=== PATIENT | male | born 1955 | race Caucasian/White ===

== ENCOUNTER 2018-06-22 06:09 | Emergency (ER) | payer OTHER ==
[~2018-06-22] VITALS: Ht 182.9 cm; Wt 127.0 kg
--- OUTSIDE RECORDS SUMMARY | ~2018-06-22 | XMS | Clinical Summary ---
Demographics + + + | Address | [address] | | | [place] [address] | + + + | Home Phone | | + + + | Preferred Language | Unknown | + + + | Marital Status | | + + + | Rastafari Affiliation | Unknown | + + + [...] | + + +---------+ + | Amber Baker | ECON | Unknown | | + + +---------+ + Care Team Providers + +------+ + | Care Slot Machine Department Floorperson Name | Role | Phone | + +------+ + | Gianni Gonzalez MD | PP | | + +------+ + Source Comments FRANKIE is fully live on both [facility] Ambulatory and [facility] InPatient.[facility] Allergies No Known Allergies Current Medications + + +-------+---------+------+------+-------+ | Prescription | Sig. | Disp. | Refills | Star | End | Statu | | | | | | t | Date | s | | | | | | Date | | | + + +-------+---------+------+------+-------+ | INSULIN ZINC HUMAN | Inject under the | | | | | Activ | | RECOMBINANT | skin (SUBC). 85 | | | | | e | | (HUMULIN L SUBQ) | units every morning | | | | | | | | and 60 units every | | | | | | | | evening | | | | | | + + +-------+---------+------+------+-------+ | | Take 1 tablet by | | | | | Activ | | valsartan-hydrochlor | mouth once daily. | | | | | e | | othiazide 160-12.5 | | | | | | | | mg oral tablet | | | | | | | + + +-------+---------+------+------+-------+ | metoprolol | Take 50 mg by mouth | | | | | Activ | | succinate 50 mg oral | once daily. | | | | | e | | tablet extended | | | | | | | | release 24 hr | | | | | | | + + +-------+---------+------+------+-------+ | metFORMIN 500 mg | Take 500 mg by mouth | | | | | Activ | | oral tablet | once daily. | | | | | e | + + +-------+---------+------+------+-------+ | amLODIPine 5 mg | Take 5 mg by mouth | | | | | Activ | | oral tablet | once daily. | | | | | e | + + +-------+---------+------+------+-------+ | atorvastatin 40 mg | Take 40 mg by mouth | | | | | Activ | | oral tablet | once daily. | | | | | e | + + +-------+---------+------+------+-------+ | | Take by mouth once | | | | | Activ | | MV/K/OMG3/D3/MAG/C/G | daily. | | | | | e | | .TEA/CHROM (DIABETES | | | | | | | | HEALTH PACK ORAL) | | | | | | | + + +-------+---------+------+------+-------+ Active Problems Not on file Family History [...] + +---------+ + | Yes | 1 | 0.6 | | | | Standard | | | | | drinks or | | | | | | | | | | equivalen | | | | | t | | | + + +---------+ + + + + | Sex Assigned at | Date Recorded | | | | + + + | Not on file | | + + + Plan of Treatment + + + + + | Health Maintenance | Due Date | Last Done | Comments | + + + + + | Influenza (Flu) | | | | | vaccination (#1) | 8 | | | + + + + + Results Not on filefrom Last 3 Months Insurance + +--------+ +------+ + + | Payer | Benefi | Subscriber | Type | Phone | Address | | | t Plan | ID | | | | | | / | | | | | | | Group | | | | | + +--------+ +------+ + + | [facility] | PHP | [phone] | PPO | [phone] [address] | | | [place] | | | [address] | [place] [address] | | | [place] | | | | | | | [place] | | | | | + +--------+ +------+ + + + +--------+ +--------+ + + | Guarantor Name | Accoun | Relation to | Date | Phone | Billing Address | | | t Type | Patient | of | | | | | | | | | | + +--------+ +--------+ + + | ABBIE BAKER | Person | Self [birth year] | Home: | [address] | | | al/Fam | | 1955 | [phone] | [place] [address] | | | adam | | | 1998 | | + +--------+ +--------+ + +"
--- OUTSIDE RECORDS SUMMARY | ~2018-06-22 | XMS | Clinical Summary ---
Demographics + + + | Address | [address] | | | [place] [address] | + + + | Home Phone | | + + + | Preferred Language | Unknown | + + + | Marital Status | | + + + | Confucianism Affiliation | Unknown | + + + | Race | Unknown | + + + | Ethnic Group | Unknown | + + + Author + + + | Author | [facility] | | | and [place] | + + + | Organization | [facility] | | | and [place] [...] Team Providers + +------+ + | Care Paving Block Cutter Name | Role | Phone | + +------+ + | Gianni Gonzalez | PP | | | MD | | | + +------+ + Allergies No Known Allergies Current Medications + + +-------+---------+------+------+-------+ | Prescription | Sig. | Disp. | Refills | Star | End | Statu | | | | | | t | Date | s | | | | | | Date | | | + + +-------+---------+------+------+-------+ | metFORMIN | Take 1,000 mg by | | | | | Activ | | (GLUMETZA) [...] | | | | Activ | | tartrate (LOPRESSOR) | 2 times daily. | | | | | e | | 50 mg tablet | | | | | | | + + +-------+---------+------+------+-------+ | insulin NPH | Inject 145 Units | | | | | Activ | | (HUMULIN N, NOVOLIN | under the skin 2 | | | | | e | | N) 100 units/mL | times daily (before | | | | | | | injection | meals). | | | | | | + + +-------+---------+------+------+-------+ | Misc Natural | Take 1 packet by | | | | | Activ | | Products (DIABETES | mouth Daily. | | | | | e | | SUPPORT) TABS | | | | | | | + + +-------+---------+------+------+-------+ | UNABLE TO FIND | Med Name: Resmed | | | | | Activ | | | AirSense 10 autoset | | | | | e | | | CPAP: 8-20 cm | | | | | | + + +-------+---------+------+------+-------+ Active Problems + + + | Problem | Noted Date | + + + | Type 2 diabetes mellitus (HCC) | | + + + | Obesity [...] on file | | + + + Last Filed Vital Signs + [...] | Body Mass Index | 41.74 | 12/21/2015934 PDT | + + + + Plan [...] | | | | | (#1) | 8 | | | + + + + + Results Not on filefrom Last 3 Months Insurance + +--------+ +------+ +---------+ | Payer | Benefi | Subscriber | Type | Phone | Address | | | t Plan | ID | | | | | | / | | | | | | | Group | | | | | + +--------+ +------+ +---------+ | [facility] | PHP | [id number] | PPO | [phone] | | PLAN | [place] | | | [phone] | | | | [place] | | | | | | | [place] | | | | | + +--------+ +------+ +---------+ + +--------+ +--------+ + + | Guarantor Name | Accoun | Relation to | Date | Phone | Billing Address | | | t Type | Patient | of | | | | | | | | | | + +--------+ +--------+ + + | ABBIE CAO | Person | Self | [birth year] | Home: | [address] | | | [place] | | 1955 | [phone] | [place] [address] | | | adam | | | 1998 | | + +--------+ +--------+ + +
--- OUTSIDE RECORDS SUMMARY | ~2018-06-22 | XMS | Clinical Summary ---
Demographics + + + | Address | [address] | | | [place] [address] | + + + | Home Phone | | + + + | Preferred Language | Unknown | + + + | Marital Status | | + + + | Faith Affiliation | Unknown | + + + | Race | Unknown | + + + | Ethnic Group | Unknown | + + + Author + + + | Author | [facility] | | | and [place] | + + + | Organization | [facility] | | | and [place] | [...] Team Providers + +------+ + | Care Appliance Sales Associate Name | Role | Phone | + [...] | | + +--------+ +------+ +---------+ | [facility] | PHP | [id number] | PPO | [phone] | | PLAN | [place] | [...] | Self | [birth year] | Home: | [address] | | | [place] | | 1955 | [phone] | [place] [address] | | | adam | | | 1998 | | + +--------+ +--------+ + +
--- OUTSIDE RECORDS SUMMARY | ~2018-06-22 | XMS | Clinical Summary ---
Demographics + + + | Address | [address] | | | [place] [address] | + + + | Home Phone | | + + + | Preferred Language | Unknown | + + + | Marital Status | | + + + | Worship Affiliation | Unknown | + + + [...] Team Providers + +------+ + | Care Technical Internship Name | Role | Phone | + +------+ + | Gianni Gonzalez MD | PP | | + +------+ + Source Comments FRANKIE is fully live on both [facility] Ambulatory and [facility] InPatient.[facility] Allergies No Known Allergies Current Medications + [...] | [address] | | | [address] | [place] [address] | | | [place] | | | [...] | Self | [birth year] | Home: | [address] | | | al/Fam | | 1955 | [phone] | [place] [address] | | | adam | | | 1998 | | + +--------+ +--------+ + +"
[~2018-06-22 06:09] MED LIST: AMLODIPINE BESYL5 MG PO; ATORVASTATIN CA20 MG PO; FENOFIBRATE160 MG PO; LANTUS SOL100 UNIT/1 SUB-Q; METOPROLOL TART50 MG PO; PERCOCET 5-3251 EACH PO; VALSARTAN-HCTZ1 EAC4 PO
[2018-06-22] MEDS ORDERED: METFORMIN HCL500 M1 PO (06:21)
[2018-06-22] MEDS ORDERED: OLMESARTAN-HCT1 EAC1 PO (06:21)
[2018-06-22] MEDS ORDERED: HUMULIN N100 UNIT/3 SUB-Q (06:22)
[2018-06-22] MEDS ORDERED: JARDIANCE25 MG PO (06:22)
--- NOTE | 2018-06-22 23:22 | EKG ---
[facility] [address] [place] [address] Signed Normal sinus rhythm Normal ECG When compared with ECG of 04-AUG-2016 11:42, No significant change was found Confirmed by CASH FAYE MD ([id number]) on 06/22/2018 11:22:27 PM Electronically Signed By: CASH FAYE MD 06/22/18 2322 PATIENT NAME: SAMUELABBIE Electrocardiogram DATE OF : 59 PHYSICIAN: CASH FAYE MD REPORT #: [id number] REPORT IS CONFIDENTIAL AND NOT TO BE RELEASED WITHOUT AUTHORIZATION
== END 2018-06-22 09:30 | disposition home or self-care (01) ==
LOC: ED 06:09
DX: R07.2 Precordial pain (principal); E11.9 Type 2 diabetes mellitus without complications; I10 Essential (primary) hypertension; Z88.8 Allergy status to other drugs, medicaments and biological substances; Z79.84 Long term (current) use of oral hypoglycemic drugs; Z79.899 Other long term (current) drug therapy
CPT/HCPCS: 36415; 71045; 80053; 84484; 85025; 85379; 93005; 93010; 99285-25

== ENCOUNTER 2019-01-10 18:32 | Emergency (ER) | payer OTHER ==
[~2019-01-10] VITALS: Ht 182.9 cm; Wt 129.3 kg
--- OUTSIDE RECORDS SUMMARY | ~2019-01-10 | XMS | Encounter Summary ---
Demographics + + + | Address | [address] | | | [place] [address] | + + + | Home Phone | | + + + | Preferred Language | Unknown | + + + | Marital Status | | + + + | Mormon Affiliation | Unknown | + + + | Race | White | + + + | Ethnic Group | Not or | + + + Author + + + | Author | [facility] | + + + | Organization | [facility] | + + + | Address | Unknown | + + + | Phone | Unavailable | + + + Support + + +---------+ + | Name | Relationship | Address | Phone | + + +---------+ + | Amber Cao | ECON | Unknown | | + + +---------+ + Care Team Providers + +------+ + | Care Adjunct History Instructor Name | Role | Phone | + +------+ + | Gianni Gonzalez MD | PCP | | + +------+ + Reason for Visit + + + | Reason | Comments | + + + | Medical Records | | | Review | | + + + Encounter Details +--------+ + + + + | Date | Type | Department | Care Team | Description | +--------+ + + + + | 07/30/ | Abstract | Digestive Health | Clinic, Surgery | Medical Records | | 2016 | | [place] [facility] [address] | | Review | | | | [address] | | | | | | Mailcode: Center | | | | | | [facility] Health and | | | | | | [facility] 2 | | | | | | [place], [place] | | | | | | [address] | | | | | | [phone] | | | +--------+ + + + + Social History + +-------+ +--------+------+ | Tobacco Use | Types | Packs/Day | Years | Date | | | | | Used | | + +-------+ +--------+------+ | Never Assessed | | | | | + +-------+ +--------+------+ + + + | Sex Assigned at | Date Recorded | | | | + + + | Not on file | | + + + + + + + | Job Start Date | Occupation | Industry | + + + + | Not on file | Not on file | Not on file | + + + + + + + + | Travel History | Travel Start | Travel End | + + + + + + | No recent travel history available. | + + documented as of this encounter Plan of Treatment Not on filedocumented as of this encounter Visit Diagnoses Not on filedocumented in this encounter"
--- OUTSIDE RECORDS SUMMARY | ~2019-01-10 | XMS | Encounter Summary ---
Demographics + + + | Address | [address] | | | [place] [address] | + + + | Home Phone | | + + + | Preferred Language | Unknown | + + + | Marital Status | | + + + | Mosque Affiliation | Unknown | + + + | Race | White | + + + | Ethnic Group | Not or | + + + Author + + + | Author | [facility] | + + + | Organization | [facility] | + + + | Address | Unknown | + + + | Phone | Unavailable | + + + Support + + +---------+ + | Name | Relationship | Address | Phone | + + +---------+ + | Amber Cao | ECON | Unknown | | + + +---------+ + Care Team Providers + +------+ + | Care Janitorial Tech Name | Role | Phone | + [...] Medical Records | | 2016 | | [facility] [address] | | Review | | | | [address] | | | | | | Mailcode: Center | | | | | | [facility] Health and | | | | | | [facility] 2 | | | | | | [place], [place] | | | | | | [address] | | | | | | [phone] | | | +--------+ + + + [...]
--- OUTSIDE RECORDS SUMMARY | ~2019-01-10 | XMS | Encounter Summary ---
Demographics + + + | Address | [address] | | | [place] [address] | + + + | Home Phone | | + + + | Preferred Language | Unknown | + + + | Marital Status | | + + + | Yazidism Affiliation | Unknown | + + + | Race | White | + + + | Ethnic Group | Not or | + + + Author + + + | Author | [facility] | + + + | Organization | [facility] | + + + | Address | Unknown | + + + | Phone | Unavailable | + + + Support + + +---------+ + | Name | Relationship | Address | Phone | + + +---------+ + | Amber Cao | ECON | Unknown | | + + +---------+ + Care Team Providers + +------+ + | Care Metal Checker Name | Role | Phone | + +------+ + | Gianni Gonzalez MD | PCP | | + +------+ + Encounter Details +--------+ + + + + | Date | Type | Department | Care Team | Description | +--------+ + + + + | 08/05/ | Documentati | Digestive Health | Yissel Parker, | | | 2017 | on | [facility] at [facility] [address] | [facility] [address] | | | | | [address] | [facility] [place] | | | | | Mailcode: Center | [address] | | | | | for Health and | | | | | | [facility] [address] | | | | | | [facility] [place] | | | | | | [address] | | | | | | | | | +--------+ + + + + Social History + +-------+ +--------+------+ | Tobacco Use | Types | Packs/Day | Years | Date | | | | | Used | | + +-------+ +--------+------+ | Never Smoker | | | | | + +-------+ +--------+------+ + + +---------+ + | Alcohol Use | Drinks/Week | oz/Week | Comments | + + +---------+ + | Yes | 1 Standard drinks | 1.0 | | | | or equivalent | | | + + +---------+ + + + + | Sex Assigned at [...]
--- OUTSIDE RECORDS SUMMARY | ~2019-01-10 | XMS | Clinical Summary ---
Demographics + + + | Address | [address] | | | [place] [address] | + + + | Home Phone | | + + + | Preferred Language | Unknown | + + + | Marital Status | | + + + | Voodoo Affiliation | Unknown | + + + | Race | White | + + + | Ethnic Group | Not or | + + + Author + + + | Author | [facility] | + + + | Organization | [facility] | + + + | Address | Unknown | + + + | Phone | Unavailable | + + + Support + + +---------+ + | Name | Relationship | Address | Phone | + + +---------+ + | Amber Cao | ECON | Unknown | | + + +---------+ + Care Team Providers + +------+ + | Care High School Social Science Teacher Name | Role | Phone | + +------+ + | Gianni Gonzalez MD | PCP | | + +------+ + Source Comments FRANKIE is fully live on both [facility] Ambulatory and [facility] InPatient.[facility] Allergies No Known Allergies Medications + + + +---------+------+------+-------+ | Medication | Sig | Dispensed | Refills | Star | End | Statu | | | | | | t | Date | s | | | | | | Date | | | + + + +---------+------+------+-------+ | INSULIN ZINC HUMAN | Inject under the | | 0 | | | Activ | | RECOMBINANT | skin (SUBC). 85 | | | | | e | | (HUMULIN L SUBQ) | units every morning | | | | | | | | and 60 units every | | | | | | | | evening | | | | | | + + + +---------+------+------+-------+ | | Take 1 tablet by | | 0 | | | Activ | | valsartan-hydrochlor | mouth once daily. | | | | | e | | othiazide 160-12.5 | | | | | | | | mg oral tablet | | | | | | | + + + +---------+------+------+-------+ | metoprolol | Take 50 mg by mouth | | 0 | | | Activ | | succinate 50 mg oral | once daily. | | | | | e | | tablet extended | | | | | | | | release 24 hr | | | | | | | + + + +---------+------+------+-------+ | metFORMIN 500 mg | Take 500 mg by mouth | | 0 | | | Activ | | oral tablet | once daily. | | | | | e | + + + +---------+------+------+-------+ | amLODIPine 5 mg | Take 5 mg by mouth | | 0 | | | Activ | | oral tablet | once daily. | | | | | e | + + + +---------+------+------+-------+ | atorvastatin 40 mg | Take 40 mg by mouth | | 0 | | | Activ | | oral tablet | once daily. | | | | | e | + + + +---------+------+------+-------+ | | Take by mouth once | | 0 | | | Activ | | MV/K/OMG3/D3/MAG/C/G | daily. | | | | | e | | .TEA/CHROM (DIABETES | | | | | | | | HEALTH PACK ORAL) | | | | | | | + + + +---------+------+------+-------+ Active Problems Not on file Family History + + +------+ + | Medical History | Relation | Name | Comments | + + +------+ + | None | Brother | | | + + +------+ + | None | Brother | | | + + +------+ + | None | Brother | | | + + +------+ + | Diabetes | Mother | | | + + +------+ + | None | Sister | | | + + +------+ + + +------+--------+ + | Relation | Name | Status | Comments | + +------+--------+ + | Brother | | Alive | | + +------+--------+ + | Brother | | Alive | | + +------+--------+ + | Brother | | Alive | | + +------+--------+ + | Mother | | Alive | | + +------+--------+ + | Sister | | Alive | | + +------+--------+ + Social History + +-------+ +--------+------+ | [...] recent travel history available. | + + Last Filed Vital Signs Not on file Plan of Treatment + + + + + | Health Maintenance | Due Date | Last Done | Comments | + + + + + | Influenza (Flu) | | | | | vaccination (#1) | 9 | | | + + + + + | Pneumococcal | Aged Out | | No longer eligible | | vaccination | | | based on patient's | | | | | age to complete this | | | | | topic | + + + + + Results Not on filefrom Last 3 Months Insurance + +--------+ +--------+ + +------+ | Payer | Benefi | Subscriber | Effect | Phone | Address | Type | | | t Plan | ID | carmen | | | | | | / | | Dates | | | | | | Group | | | | | | + +--------+ +--------+ + +------+ | [facility] | PHP | [phone] | 03/31/19 | [phone] | [address] | PPO | | | [place] | | [address] | [address] | | | | [place] | | sent | | [place], | | | | [place] | | | | [place] [address] | | + +--------+ +--------+ + +------+ + +--------+ +--------+ + + | Guarantor Name | Accoun | Relation to | Date | Phone | Billing Address | | | t Type | Patient | of | | | | | | | | | | + +--------+ +--------+ + + | Laura Cao | Person | Self | [birth year] | | [address] | | | [place] | | 1955 | [phone] | [place] [address] | | | adam | | | 1 (Home) | | + +--------+ +--------+ + +"
--- OUTSIDE RECORDS SUMMARY | ~2019-01-10 | XMS | Clinical Summary ---
Demographics + + + | Address | [address] | | | [place] [address] | + + + | Home Phone | | + + + | Preferred Language | Unknown | + + + | Marital Status | | + + + | Oriental Orthodox Affiliation | Unknown | + + + | Race | Unknown | + + + | Ethnic Group | Unknown | + + + Author + + + | Author | [facility] | | | and [place] | + + + | Organization | [facility] | | | and [place] | + + + | Address | Unknown | + + + | Phone | Unavailable | + + + Support + + +---------+ + | Name | Relationship | Address | Phone | + + +---------+ + | Amber Cao | ECON | Unknown | | + + +---------+ + Care Team Providers + +------+ + | Care Health Navigator Name | Role | Phone | + +------+ + | Gianni Gonzalez | PCP | | | MD | | | + +------+ + Allergies No Known Allergies Medications + + + +---------+------+------+-------+ | Medication | Sig | Dispensed | Refills | Star | End | Statu | | | | | | t | Date | s | | | | | | Date | | | + + + +---------+------+------+-------+ | metFORMIN | Take 1,000 mg by | | 0 | | | Activ | | (GLUMETZA) 1000 MG | mouth daily (with | | | | | e | | 24 hr tablet | breakfast). | | | | | | + + + +---------+------+------+-------+ | | Take 1 tablet by | | 0 | | | Activ | | valsartan-hydrochlor | mouth Daily. | | | | | e | | othiazide | | | | | | | | (DIOVAN-HCT) 320-25 | | | | | | | | MG per tablet | | | | | | | + + + +---------+------+------+-------+ | metoprolol | Take 50 mg by mouth | | 0 | | | Activ | | tartrate (LOPRESSOR) | 2 times daily. | | | | | e | | 50 mg tablet | | | | | | | + + + +---------+------+------+-------+ | insulin NPH | Inject 145 Units | | 0 | | | Activ | | (HUMULIN N, NOVOLIN | under the skin 2 | | | | | e | | N) 100 units/mL | times daily (before | | | | | | | injection | meals). | | | | | | + + + +---------+------+------+-------+ | Misc Natural | Take 1 packet by | | 0 | | | Activ | | Products (DIABETES | mouth Daily. | | | | | e | | SUPPORT) TABS | | | | | | | + + + +---------+------+------+-------+ | UNABLE TO FIND | Med Name: Resmed | | 0 | | | Activ | | | AirSense 10 autoset | | | | | e | | | CPAP: 8-20 cm | | | | | | + + + +---------+------+------+-------+ Active Problems + + + | Problem | Noted Date | + + + | Type 2 diabetes mellitus | | + + + | Obesity | | + + + | MINH (obstructive sleep apnea) | | + + + Family History + + +------+ + | Medical History | Relation | Name | Comments | + + +------+ + | Diabetes | Mother | | | + + +------+ + | High blood pressure | Mother | | | + + +------+ + + +------+ + + | Relation | Name | Status | Comments | + +------+ + + | Brother | | Alive | | + +------+ + + | Brother | | Alive | | + +------+ + + | Brother | | Alive | | + +------+ + + | Father | | Other | | + +------+ + + | Mother | | Alive | | + +------+ + + | Sister | | Alive | | + +------+ + + | Son | | | suicide | | | | (Age | | | | | 24) | | + +------+ + + Social History + +--------+ +--------+------+ | Tobacco Use | Types | Packs/Day | Years | Date | | | | | Used | | + +--------+ +--------+------+ | Current Some Day | Cigars | | | | | Smoker | | | | | + +--------+ +--------+------+ + +---+---+---+ | Smokeless Tobacco: | | | | | Never Used | | | | + +---+---+---+ + + +---------+ + | Alcohol Use | Drinks/We | oz/Week | Comments | | | ek | | | + + +---------+ + | Yes | 0 | 0.0 | Rare | | | Standard | | | | | drinks or | | | | | | | | | | equivalen | | | | | t | | | + + +---------+ + [...] | + + Last Filed Vital Signs + + + + | Vital Sign | Reading | Time Taken | + + + + | Blood Pressure | 150/70 | 12/21/2015934 PDT | + + + + | Pulse | 75 | 12/21/2015934 PDT | + + + + | Temperature | - | - | + + + + | Respiratory Rate | 16 | 12/21/2015934 PDT | + + + + | Oxygen Saturation | 98% | 12/21/2015934 PDT | + + + + | Inhaled Oxygen | - | - | | Concentration | | | + + + + | Weight | 133.9 kg (295 lb 1.6 | 12/21/2015934 PDT | | | oz) | | + + + + | Height | 179.1 cm (5' 10.5") | 08/18/2015947 PDT | + + + + | Body Mass Index | 41.74 | 08/18/2015947 PDT | + + + + Plan of Treatment + + + + + | Health Maintenance | Due Date | Last Done | Comments | + + + + + | Vaccine: | | | | | Dtap/Tdap/Td (1 - | 7 | | | | Tdap) | | | | + + + + + | Vaccine: Zoster (1 | | | | | of 2) | 8 | | | + + + + + | Vaccine: Influenza | | | | | (#1) | 9 | | | + + + + + Results Not on filefrom Last 3 Months Insurance + +--------+ +--------+ +---------+------+ | Payer | Benefi | Subscriber | Effect | Phone | Address | Type | | | t Plan | ID | carmen | | | | | | / | | Dates | | | | | | Group | | | | | | + +--------+ +--------+ +---------+------+ | [facility] | PHP | [id number] | 06/30/19 | [phone] | | PPO | | PLAN | PEBB | | 11-Pre | 5 | | | | | [place] | | sent | | | | | | [place] | | | | | | + +--------+ +--------+ +---------+------+ + +--------+ +--------+ + + | Guarantor Name | Accoun | Relation to | Date | Phone | Billing Address | | | t Type | Patient | of | | | | | | | | | | + +--------+ +--------+ + + | Laura Cao | Person | Self | [birth year] | [address] | | | [place] | | 8 | [phone] | [place] [address] | | | adam | | | 1 (Home) | | + +--------+ +--------+ + + Advance Directives Patient has advance care planning documents on file. For more information, please contact:[facility] [address]
--- OUTSIDE RECORDS SUMMARY | ~2019-01-10 | XMS | Clinical Summary ---
Demographics + + + | Address | [address] | | | [place] [address] | + + + | Home Phone | | + + + | Preferred Language | Unknown | + + + | Marital Status | | + + + | Pentecostalism Affiliation | Unknown | + + + | Race | Unknown | + + + | Ethnic Group | Unknown | + + + Author + + + | Author | [facility] | | | and [place] | + + + | Organization | [facility] | | | and [place] [...] Team Providers + +------+ + | Care Science Education Professor Name | Role | Phone | + [...] +---------+------+ | [facility] | PHP | [phone] | 06/30/19 | [phone] | | PPO | | PLAN | [...] Person | Self | [birth year] | [address] | | | [place] | | 8 | [phone] | [place] [address] | | | adam | | | 1 (Home) | | + +--------+ +--------+ + + Advance Directives Patient has advance care planning documents on file. For more information, please contact:[facility] [place] [address]
--- OUTSIDE RECORDS SUMMARY | ~2019-01-10 | XMS | Encounter Summary ---
Demographics + + + | Address | [address] | | | [place] [address] | + + + | Home Phone | | + + + | Preferred Language | Unknown | + + + | Marital Status | | + + + | Anabaptist Affiliation | Unknown | + + + | Race | White | + + + | Ethnic Group | Not or | + + + Author + + + | Author | [facility] | + + + | Organization | [facility] | + + + | Address | Unknown | + + + | Phone | Unavailable | + + + Support + + +---------+ + | Name | Relationship | Address | Phone | + + +---------+ + | Amber Cao | ECON | Unknown | | + + +---------+ + Care Team Providers + +------+ + | Care Wage And Hour Investigator Name | Role | Phone | + [...] | | [address] | [place] [facility] [place] | | | | | Mailcode: Center | [phone] | | | | | for Health and | | | | | | [facility] [address] | | | | | | [facility] [place] | | | | | | [phone] | | | | | | | [...]
--- OUTSIDE RECORDS SUMMARY | ~2019-01-10 | XMS | Clinical Summary ---
Demographics + + + | Address | [address] | | | [place] [address] | + + + | Home Phone | | + + + | Preferred Language | Unknown | + + + | Marital Status | | + + + | Tenriism Affiliation | Unknown | + + + [...] Team Providers + +------+ + | Care Surface Grinder Tender Name | Role | Phone | + +------+ + | Gianni Gonzalez MD | PCP | | + +------+ + Source Comments FRANKIE is fully live on both [facility] and [facility] InPatient.[facility] Allergies No Known Allergies Medications + + [...] | + +--------+ +--------+ + +------+ | [facility] | PHP | [phone] | 03/31/19 | [phone] | [address] | PPO | | | PEBB | | 17-Pre | 0 | [phone] | | | | [place] | | sent | | [place], | | | | [place] | | | | [place] [address] | | + +--------+ +--------+ + +------+ + +--------+ +--------+ + + | Guarantor Name | Accoun | Relation to | Date | Phone | Billing Address | | | t Type | Patient | of | | | | | | | | | | + +--------+ +--------+ + + | Laura Cao | Person | Self | [birth year] | | [address] | | | [place] | | 1955 | [phone] | [place] [address] | | | adam | | | 1 (Home) | | + +--------+ +--------+ + +"
[~2019-01-10 18:32] MED LIST changes: +HUMULIN N100 UNIT/3 SUB-Q; +JARDIANCE25 MG PO; +LEVOTHYROXINE75 MCG PO; +METFORMIN HCL500 M1 PO; +NORCO 10-325 T1 EACH PO; +OLMESARTAN-HCT1 EAC1 PO; +ULTRAM50 MG PO
--- OUTSIDE RECORDS SUMMARY | 2019-01-10 18:34 | XMS ---
PreManage Notification: ABBIE BAKER Security Box Toe Cementer Events No recent Security Events currently on file CRITERIA MET - [facility] CARE PROVIDERS Gianni Gonzalez Current PHONE: Unknown Ying has no Care Guidelines for this patient. EBrittney VISIT COUNT (12 MO.) 2 SARAH Urena TOTAL 2 NOTE: Visits indicate total known visits. 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
--- NOTE | 2019-01-11 15:39 | EKG ---
[facility] [address] [place] [address] Signed Suspect arm lead reversal, interpretation assumes no reversal Normal sinus rhythm Possible Left atrial enlargement Left posterior fascicular block ST elevation, consider inferior injury or acute infarct ACUTE VT / STEMI Consider right ventricular involvement in acute inferior infarct Abnormal ECG When compared with ECG of 19-NOV-2018 09:26, Significant changes have occurred Confirmed by CASH FAYE MD ([id number]) on 01/11/2019 3:39:00 PM Electronically Signed By: CASH FAYE MD 01/11/19 1539 PATIENT NAME: ABBIE BAKER Electrocardiogram DATE OF : 59 PHYSICIAN: CASH FAYE MD REPORT #: [id number] REPORT IS CONFIDENTIAL AND NOT TO BE RELEASED WITHOUT AUTHORIZATION
== END 2019-01-10 19:15 | disposition short-term general hospital (02) ==
LOC: ED 18:32
DX: I21.19 ST elevation (STEMI) myocardial infarction involving other coronary artery of inferior wall (principal); I10 Essential (primary) hypertension; E11.9 Type 2 diabetes mellitus without complications; Z88.8 Allergy status to other drugs, medicaments and biological substances; Z79.4 Long term (current) use of insulin; Z79.899 Other long term (current) drug therapy
CPT/HCPCS: 71045; 80053; 83735; 84484; 85025; 93005; 93010; 96374; 96375; 99285-25; J1644; J3101

== ENCOUNTER 2019-05-29 03:16 | Emergency (ER) | payer OTHER ==
[~2019-05-29] VITALS: Ht 182.9 cm; Wt 118.8 kg
[2019-05-29] MEDS ORDERED: ASPIR-LOW81 MG PO (03:34)
[2019-05-29] MEDS ORDERED: CLOPIDOGREL75 MG PO (03:34)
[2019-05-29] MEDS ORDERED: NITROGLYCERIN0.4 MG SL (03:35)
--- NOTE | 2019-05-29 16:38 | EKG ---
[facility] [address] [facility] [place] [address] Signed Normal sinus rhythm Possible Left atrial enlargement Nonspecific ST abnormality Abnormal ECG When compared with ECG of 10-JAN-2019 18:38, Left posterior fascicular block is no longer present ST now depressed in Inferior leads ST less depressed in Anterolateral leads T wave inversion no longer evident in Lateral leads Confirmed by CASH FAYE MD (255) on 05/29/2019 4:37:40 PM Electronically Signed By: CASH FAYE MD 05/29/19 1638 PATIENT NAME: ABBIE BAKER Electrocardiogram DATE OF : 59 PHYSICIAN: CASH FAYE MD REPORT #: [id number] REPORT IS CONFIDENTIAL AND NOT TO BE RELEASED WITHOUT AUTHORIZATION
== END 2019-05-29 05:55 | disposition home or self-care (01) ==
LOC: ED 03:16
DX: R07.9 Chest pain, unspecified (principal); I10 Essential (primary) hypertension; E11.9 Type 2 diabetes mellitus without complications; I25.2 Old myocardial infarction; Z87.891 Personal history of nicotine dependence; Z79.899 Other long term (current) drug therapy
CPT/HCPCS: 71045; 80053; 83735; 83880; 84484; 85025; 85610; 93005; 93010; 96374; 96375; 99285-25; J2270; J2405

== ENCOUNTER 2021-02-03 13:41 | Emergency (ER) | payer OTHER ==
[~2021-02-03] VITALS: Ht 182.9 cm; Wt 116.6 kg
[~2021-02-03 13:41] MED LIST changes: +ASPIR-LOW81 MG PO; +CLOPIDOGREL75 MG PO; +NITROGLYCERIN0.4 MG SL
[2021-02-03] MEDS ORDERED: METOPROLOL TAR100 MG PO (14:16)
[2021-02-03] MEDS ORDERED: OLMESARTAN MEDO40 MG PO (14:18)
[2021-02-03] MEDS ORDERED: HUMULIN R100 UNIT/1 INJ (14:20)
[2021-02-03] MEDS ORDERED: METFORMIN HCL500 MG PO (14:21)
--- NOTE | 2021-02-05 13:40 | EKG ---
[facility] [address] [place] [address] Signed Sinus bradycardia Inferior infarct , age undetermined Abnormal ECG When compared with ECG of 29-MAY-2019 03:20, Vent. rate has decreased BY 44 BPM Inferior infarct is now present ST no longer depressed in Inferior leads ST no longer depressed in Lateral leads Confirmed by CASH FAYE MD ([id number]) on 02/05/2021 1:40:29 PM Electronically Signed By: CASH FAYE MD 02/05/21 1340 PATIENT NAME: ABBIE BAKER Electrocardiogram DATE OF : [birth year] PHYSICIAN: CASH FAYE MD REPORT #: [id number] REPORT IS CONFIDENTIAL AND NOT TO BE RELEASED WITHOUT AUTHORIZATION
== END 2021-02-03 16:51 | disposition home or self-care (01) ==
LOC: ED 13:41
DX: I10 Essential (primary) hypertension (principal); R94.31 Abnormal electrocardiogram [ECG] [EKG]; E11.9 Type 2 diabetes mellitus without complications; I25.2 Old myocardial infarction; Z87.891 Personal history of nicotine dependence; Z88.8 Allergy status to other drugs, medicaments and biological substances; Z79.899 Other long term (current) drug therapy; Z79.82 Long term (current) use of aspirin; Z79.4 Long term (current) use of insulin; Z79.84 Long term (current) use of oral hypoglycemic drugs
CPT/HCPCS: 71045; 80053; 81001; 83735; 84484; 85025; 93005; 93010; 99284-25

== ENCOUNTER 2023-09-12 11:48 | Emergency (ER) | payer MEDICARE, OTHER ==
[~2023-09-12] VITALS: Ht 182.9 cm; Wt 116.6 kg
[~2023-09-12 11:48] MED LIST changes: +HUMULIN R100 UNIT/1 INJ; +METFORMIN HCL500 MG PO; +METOPROLOL TAR100 MG PO; +OLMESARTAN MEDO40 MG PO
[2023-09-12] MEDS ORDERED: TRESIBA FL100 UNIT/1 (13:17)
[2023-09-12] MEDS ORDERED: SODIUM CHLORIDE 0.9% 1,000 ML IV PRN (13:45)
[2023-09-12] MEDS ORDERED: HYDROmorphone HCL 1 MG/ML SYR IV PRN (13:45)
[2023-09-12] MEDS ORDERED: ondansetron HCL 4 MG/2 ML VIAL IV ONE (13:45)
[2023-09-12 13:54] LABS: BASOPHILS 0.9 % (0-2); EOSINOPHILS 5.6 % (0-6); HEMATOCRIT 38.8 % (35.0-50.0); HEMOGLOBIN 12.8 g/dL (12.0-18.0); LYMPHOCYTES 32.5 % (24-44); MCV 87.7 fl (81-99); PLATELET COUNT 201 K/uL (140-440); RBC 4.43 M/ul (4.3-5.7); RDW 15.6 (10.5-15.0)
[2023-09-12 14:10] LABS: ALBUMIN 2.9 g/dL (3.4-5.0); ALBUMIN/GLOBULIN RATIO 0.6 (1.1-2.4); ANION GAP 14.6 (7-21); BILIRUBIN, TOTAL 0.5 ng/dL (0.2-1.0); BUN/CREATININE RATIO 24.68 (6.0-28.6); CALCIUM 9.4 mg/dL (8.5-10.1); CREATININE, SERUM 1.58 mg/dL (0.70-1.30); POTASSIUM 4.6 mmol/L (3.5-5.1); PROTEIN, TOTAL 7.7 g/dL (6.4-8.2)
[2023-09-12 15:48] LABS: BILIRUBIN, URINE NEGATIVE (negative); BLOOD/HGB, URINE NEGATIVE (Negative); KETONE, URINE NEGATIVE (Negative); LEUK ESTERASE, URINE NEGATIVE (negative); NITRITE, URINE NEGATIVE (negative); PH, URINE 5.5 (5-7)
[2023-09-12 16:26] VITALS: BP 122/61
== END 2023-09-12 16:26 | disposition home or self-care (01) ==
LOC: ED 11:48
PROVIDERS: Emergency Medicine
DX: R10.9 Unspecified abdominal pain (principal); I10 Essential (primary) hypertension; E78.5 Hyperlipidemia, unspecified; E03.9 Hypothyroidism, unspecified; I25.10 Atherosclerotic heart disease of native coronary artery without angina pectoris; E10.9 Type 1 diabetes mellitus without complications; I25.2 Old myocardial infarction; Z95.5 Presence of coronary angioplasty implant and graft; Z87.891 Personal history of nicotine dependence; Z88.8 Allergy status to other drugs, medicaments and biological substances; Z79.4 Long term (current) use of insulin; Z79.84 Long term (current) use of oral hypoglycemic drugs; Z79.899 Other long term (current) drug therapy
CPT/HCPCS: 36415; 74177; 80053; 81003; 83690; 85025; 99284-25; J7030; Q9967

== ENCOUNTER 2024-01-07 19:00 | Emergency (ER) | payer MEDICARE, OTHER ==
[~2024-01-07] VITALS: Ht 182.9 cm; Wt 117.3 kg
[~2024-01-07 19:00] MED LIST changes: +ALLOPURINOL100 MG PO; -LEVOTHYROXINE75 MCG PO; +LEVOTHYROXINE88 MCG PO; +NOVOLOG FL100 UNIT/1 SUB-Q; +OMEPRAZOLE20 MG PO; +TRESIBA FL100 UNIT/1
--- OUTSIDE RECORDS SUMMARY | 2024-01-07 19:06 | XMS ---
PreManage Notification: ABBIE BAKER Security Segment Producer Events No recent Security Events currently on file CRITERIA MET - [facility] - 2 Visits in 30 Days CARE PROVIDERS AVELINO GUZMAN [facility] 01/11/2019-Current PHONE: Unknown Ying has no Care Guidelines for this patient. Kelly VISIT COUNT ([address] [facility] TOTAL 3 NOTE: Visits indicate total known visits. ED/C VISIT TRACKING (12 MO.) 01/07/2024 19:00 [facility] [place] TYPE: Emergency COMPLAINT: - BACK PAIN 12/14/2023 11:38 [facility] [place] TYPE: Emergency COMPLAINT: - FALL DIAGNOSES: - Abrasion of left forearm, initial encounter - Abrasion, left knee, initial encounter - Abrasion, right knee, initial encounter - Allergy status to other drugs, medicaments and biological substances - Contusion of right great toe without damage to nail, initial encounter - Essential (primary) hypertension - Fall on same level, unspecified, initial encounter - Hormone replacement therapy - care home (current) use of aspirin - ad terminal makeup operator (current) use of insulin - Old myocardial infarction - Other detention (current) drug therapy - Pain in right shoulder - Personal history of nicotine dependence - Presence of coronary angioplasty implant and graft - Type 2 diabetes mellitus without complications 09/12/2023 11:[address] [facility] [place] TYPE: Emergency COMPLAINT: - LT SIDE PAIN DIAGNOSES: - Allergy status to other drugs, medicaments and biological substances - Atherosclerotic heart disease of [place] coronary artery without angina pectoris - Essential (primary) hypertension - Hyperlipidemia, unspecified - Hypothyroidism, unspecified - ad terminal makeup operator (current) use of insulin - care home (current) use of oral hypoglycemic drugs - Old myocardial infarction - Other ad terminal makeup operator (current) drug therapy - Personal history of nicotine dependence - Presence of coronary angioplasty implant and graft - Type 1 diabetes mellitus without complications - Unspecified abdominal pain INPATIENT VISIT TRACKING (12 MO.) No inpatient visits to display in this time frame [email or web address]
[2024-01-07] MEDS ORDERED: HYDROmorphone HCL 1 MG/ML SYR IV PRN (19:30)
[2024-01-07] MEDS ORDERED: KETOROLAC TROMETHAMINE 30 MG/ML VIAL IV ONE (19:45)
[2024-01-07 19:54] LABS: BASOPHILS 0.7 % (0-2); EOSINOPHILS 7.3 % (0-6); HEMATOCRIT 40.9 % (35.0-50.0); HEMOGLOBIN 13.5 g/dL (12.0-18.0); LYMPHOCYTES 41.2 % (24-44); MCH 29.2 (27-36); MCHC 33.1 g/dl (30-36); MCV 88.3 fl (81-99); MONOCYTES 10.8 % (0-12); PLATELET COUNT 209 K/uL (140-440); RBC 4.63 M/ul (4.3-5.7); RDW 16.6 (10.5-15.0)
[2024-01-07] MEDS ORDERED: ondansetron HCL 4 MG/2 ML VIAL IV ONE (20:00)
[2024-01-07 20:08] LABS: ALBUMIN 3.4 g/dL (3.4-5.0); ALBUMIN/GLOBULIN RATIO 0.64 (1.1-2.4); ANION GAP 11.6 (7-21); BILIRUBIN, TOTAL 0.4 ng/dL (0.2-1.0); CALCIUM 10.2 mg/dL (8.5-10.1); POTASSIUM 4.6 mmol/L (3.5-5.1); PROTEIN, TOTAL 8.7 g/dL (6.4-8.2)
[2024-01-07] MEDS ORDERED: methylPREDNISolone 4 MG HOME.PACK PO ONE (21:00)
[2024-01-07] MEDS ORDERED: CYCLOBENZAPRINE10 MG PO (21:03)
[2024-01-07] MEDS ORDERED: CYCLOBENZAPRINE HCL 10 MG HOME.PACK PO ONE (21:15)
[2024-01-07 21:27] VITALS: BP 122/74
== END 2024-01-07 21:27 | disposition home or self-care (01) ==
LOC: ED 19:00
PROVIDERS: Family Medicine
DX: M51.360 Other intervertebral disc degeneration, lumbar region with discogenic back pain only (principal); E10.9 Type 1 diabetes mellitus without complications; E78.00 Pure hypercholesterolemia, unspecified; E07.9 Disorder of thyroid, unspecified; I25.2 Old myocardial infarction; Z87.891 Personal history of nicotine dependence; Z95.5 Presence of coronary angioplasty implant and graft; Z95.1 Presence of aortocoronary bypass graft; Z88.8 Allergy status to other drugs, medicaments and biological substances; Z79.4 Long term (current) use of insulin; Z79.890 Hormone replacement therapy; Z79.82 Long term (current) use of aspirin; Z79.84 Long term (current) use of oral hypoglycemic drugs; Z79.899 Other long term (current) drug therapy; Z91.81 History of falling
CPT/HCPCS: 36415; 72131; 74176; 80053; 85025; 96374; 96375; 99284-25; J1170; J1885; J2405

== ENCOUNTER 2024-07-05 01:17 | Emergency (ER) | payer OTHER, MEDICARE ==
[~2024-07-05] VITALS: Ht 182.9 cm; Wt 108.0 kg
[~2024-07-05 01:17] MED LIST changes: +CYCLOBENZAPRINE10 MG PO
--- OUTSIDE RECORDS SUMMARY | 2024-07-05 01:24 | XMS ---
PreManage Notification: ABBIE BAKER Security Mining Machinery Assembler Events No recent Security Events currently on file CRITERIA MET - [facility] - 2 Visits in 30 Days CARE PROVIDERS AVELINO GUZMAN [facility] 01/11/2019-Current PHONE: Unknown Ying has no Care Guidelines for this patient. Kelly VISIT COUNT (12 MO.) [address] [place] [address] TOTAL 5 NOTE: Visits indicate total known visits. ED/UCC VISIT TRACKING (12 MO.) 07/05/2024 01:17 [facility] [place] TYPE: Emergency COMPLAINT: - ABD PAIN 06/30/2024 13:24 [facility] [place] TYPE: Emergency DIAGNOSES: - Acute kidney failure, unspecified - Chest pain, unspecified - Hypercalcemia - CHEST PAIN 01/07/2024 19:00 [facility] [place] TYPE: Emergency COMPLAINT: - BACK PAIN DIAGNOSES: - Allergy status to other drugs, medicaments and biological substances - Disorder of thyroid, unspecified - History of falling - Hormone replacement therapy - marine oil terminal superintendent (current) use of aspirin - marine oil terminal superintendent (current) use of insulin - USP (current) use of oral hypoglycemic drugs - Low back pain, unspecified - Old myocardial infarction - Other usp (current) drug therapy - Personal history of nicotine dependence - Presence of aortocoronary bypass graft - Presence of coronary angioplasty implant and graft - Pure hypercholesterolemia, unspecified - Type 1 diabetes mellitus without complications - OTHER INTVRT DISC DEGEN, LUM RGN WITH DISCOG BACK 12/14/2023 11:38 [facility] [place] TYPE: Emergency [...] initial encounter - Hormone replacement therapy - USP (current) use of aspirin - marine oil terminal superintendent (current) use of insulin - Old myocardial infarction - Other usp (current) drug therapy - Pain in right shoulder - Personal history of nicotine dependence - Presence of coronary angioplasty implant and graft - Type 2 diabetes mellitus without complications 09/12/2023 11:49 [facility] [place] TYPE: Emergency COMPLAINT: - LT SIDE PAIN DIAGNOSES: - Allergy status to other drugs, medicaments and biological substances - Atherosclerotic heart disease of [place] coronary artery without angina pectoris - Essential (primary) hypertension - Hyperlipidemia, unspecified - Hypothyroidism, unspecified - USP (current) use of insulin - marine oil terminal superintendent (current) use of oral hypoglycemic drugs - Old myocardial infarction - Other marine oil terminal superintendent (current) drug therapy - Personal history of nicotine dependence - Presence of coronary angioplasty implant and graft - Type 1 diabetes mellitus without complications - Unspecified abdominal pain INPATIENT VISIT TRACKING (12 MO.) 06/30/2024 13:24 [facility] [place] TYPE: Medical Surgical DIAGNOSES: - Acute kidney failure, unspecified - Chest pain, unspecified - Hypercalcemia [id number]
[2024-07-05] MEDS ORDERED: ondansetron HCL 4 MG/2 ML VIAL IV ONE ×2 (01:45→02:00)
[2024-07-05 01:57] LABS: ALBUMIN 2.6 g/dL (3.4-5.0); ALBUMIN/GLOBULIN RATIO 0.5 (1.1-2.4); ANION GAP 15.8 (7-21); BUN/CREATININE RATIO 29.55 (6.0-28.6); CALCIUM 9.3 mg/dL (8.5-10.1); CREATININE, SERUM 1.59 mg/dL (0.70-1.30); MAGNESIUM 1.1 mg/dL (1.8-2.4); POTASSIUM 3.8 mmol/L (3.5-5.1); PROTEIN, TOTAL 7.8 g/dL (6.4-8.2)
[2024-07-05] MEDS ORDERED: MORPHINE SULFATE 4 MG/ML VIAL IV ONE (02:00)
[2024-07-05] MEDS ORDERED: GABAPENTIN 300 MG CAP PO ONE (02:00)
[2024-07-05 02:01] LABS: HEMATOCRIT 33.1 % (35.0-50.0); HEMOGLOBIN 11.1 g/dL (12.0-18.0); MCH 29.3 (27-36); MCHC 33.4 g/dl (30-36); MCV 87.7 fl (81-99); PLATELET COUNT 160 K/uL (140-440); RBC 3.78 M/ul (4.3-5.7); RDW 16.7 (10.5-15.0)
[2024-07-05] MEDS ORDERED: MAGNESIUM OXIDE 400 MG TABLET PO ONE ×3 (02:15→05:30)
[2024-07-05] MEDS ORDERED: MAGNESIUM SULFATE 1 GM/2 ML VIAL IV ONE (02:15)
[2024-07-05 02:23] LABS: EOSINOPHILS, MANUAL DIFF 3; LYMPHOCYTES, MANUAL DIFF 47; MONOCYTES, MANUAL DIFF 13; NEUTROPHILS, MANUAL DIFF 37
[2024-07-05] MEDS ORDERED: SODIUM CHLORIDE 0.9% 1,000 ML IV PRN (02:30)
[2024-07-05] MEDS ORDERED: PIPERACILLIN/TAZOBACTAM 3.375 GM in SODIUM CHLORIDE 0.9% 100 ML IV ONE (02:45)
[2024-07-05 03:03] LABS: BASOPHILS 0.3 % (0-2); EOSINOPHILS 0.7 % (0-6); HEMATOCRIT 31.8 % (35.0-50.0); HEMOGLOBIN 10.5 g/dL (12.0-18.0); LYMPHOCYTES 52.8 % (24-44); MCV 87.8 fl (81-99); MONOCYTES 16.5 % (0-12); NEUTROPHILS 29.7 % (39-80); PLATELET COUNT 142 K/uL (140-440); RBC 3.63 M/ul (4.3-5.7); RDW 16.2 (10.5-15.0)
[2024-07-05 03:51] LABS: CORONAVIRUS COVID-19 AG NEGATIVE (NEGATIVE); INFLUENZA A AG NEGATIVE (NEGATIVE); INFLUENZA B AG NEGATIVE (NEGATIVE)
[2024-07-05 04:32] LABS: BASOPHILS 0.7 % (0-2); EOSINOPHILS 1.1 % (0-6); HEMATOCRIT 29.9 % (35.0-50.0); LYMPHOCYTES 66.1 % (24-44); MCH 29.2 (27-36); MCHC 33.3 g/dl (30-36); MCV 87.7 fl (81-99); MONOCYTES 12.5 % (0-12); NEUTROPHILS 19.6 % (39-80); PLATELET COUNT 133 K/uL (140-440); RBC 3.42 M/ul (4.3-5.7)
[2024-07-05] MEDS ORDERED: dilTIAZem HCL 25 MG/5 ML VIAL IV ONE (04:45)
[2024-07-05 04:48] LABS: ALBUMIN 2.1 g/dL (3.4-5.0); ALBUMIN/GLOBULIN RATIO 0.48 (1.1-2.4); ANION GAP 15.9 (7-21); BILIRUBIN, TOTAL 0.9 mg/dL (0.2-1.0); CALCIUM 8.3 mg/dL (8.5-10.1); CREATININE, SERUM 1.5 mg/dL (0.70-1.30); MAGNESIUM 1.4 mg/dL (1.8-2.4); POTASSIUM 3.9 mmol/L (3.5-5.1); PROTEIN, TOTAL 6.5 g/dL (6.4-8.2)
[2024-07-05 05:16] LABS: BILIRUBIN, URINE NEGATIVE (negative); BLOOD/HGB, URINE SMALL (Negative); KETONE, URINE NEGATIVE (Negative); LEUK ESTERASE, URINE NEGATIVE (negative); NITRITE, URINE NEGATIVE (negative)
[2024-07-05] MEDS ORDERED: MAGNESIUM OXID400 M1 PO (05:35)
[2024-07-05 05:53] LABS: EPITHELIAL CELLS, URINE NONE SEEN /lpf (0-1+)
[2024-07-05 05:54] LABS: BACTERIA, URINE NONE SEEN /hpf (negative); CASTS, URINE NONE SEEN \\lpf; COLLECTION TYPE, URINE CLEAN CATCH; CRYSTALS, URINE NONE SEEN (0-1+); REFLEX CULTURE, URINE No (No)
[2024-07-05 06:02] VITALS: BP 131/80
== END 2024-07-05 06:02 | disposition home or self-care (01) ==
LOC: ED 01:17
PROVIDERS: Internal Medicine
DX: D70.9 Neutropenia, unspecified (principal); E86.0 Dehydration; E83.42 Hypomagnesemia; R10.9 Unspecified abdominal pain; W01.0XXA Fall on same level from slipping, tripping and stumbling without subsequent striking against object, initial encounter; I10 Essential (primary) hypertension; I25.2 Old myocardial infarction; E11.9 Type 2 diabetes mellitus without complications; Z87.891 Personal history of nicotine dependence; Z79.4 Long term (current) use of insulin; Z79.84 Long term (current) use of oral hypoglycemic drugs; Z79.82 Long term (current) use of aspirin; Z79.899 Other long term (current) drug therapy
CPT/HCPCS: 36415; 80053; 81001; 83605; 83690; 83735; 84443; 85025; 87040; 96361; 96365; 96375; 99284-25; A9270; J2270; J2405; J2543; J3475; J7030

== ENCOUNTER 2024-07-11 15:56 | Emergency (ER) | payer MEDICARE, OTHER ==
[~2024-07-11] VITALS: Ht 182.9 cm; Wt 107.0 kg
[~2024-07-11 15:56] MED LIST changes: +MAGNESIUM OXID400 M1 PO
--- OUTSIDE RECORDS SUMMARY | 2024-07-11 16:02 | XMS ---
PreManage Notification: ABBIE BAKER Security Scuba Dive Training Instructor Events No recent Security Events currently on file CRITERIA MET - [facility] - 2 Visits in 30 Days CARE PROVIDERS AVELINO GUZMAN [facility] 01/11/2019-Current PHONE: Unknown Ying has no Care Guidelines for this patient. Kelly VISIT COUNT ([address] [place] [address] TOTAL 6 NOTE: Visits indicate total known visits. ED/UCC VISIT TRACKING (12 MO.) 07/11/2024 15:56 [facility] [place] TYPE: Emergency COMPLAINT: - FLANK PAIN 07/05/2024 01:17 [facility] [place] TYPE: Emergency COMPLAINT: - ABD PAIN DIAGNOSES: - Dehydration - Essential (primary) hypertension - Fall on same level from slipping, tripping and stumbling without subsequent striking against object, initial encounter - Hypomagnesemia - alf (current) use of aspirin - alf (current) use of insulin - intermediate manager (current) use of oral hypoglycemic drugs - Neutropenia, unspecified - Old myocardial infarction - Other termite control service representative (current) drug therapy - Personal history of nicotine dependence - Type 2 diabetes mellitus without complications - Unspecified abdominal pain 06/30/2024 13:24 [facility] [place] TYPE: Emergency DIAGNOSES: - Acute kidney failure, unspecified - Chest pain, unspecified - Hypercalcemia - CHEST PAIN 01/07/2024 19:00 [facility] [place] TYPE: Emergency COMPLAINT: - BACK PAIN DIAGNOSES: - Allergy status to other drugs, medicaments and biological substances - Disorder of thyroid, unspecified - History of falling - Hormone replacement therapy - alf (current) use of aspirin - intermediate manager (current) use of insulin - intermediate manager (current) use of oral hypoglycemic drugs - Low back pain, unspecified - Old myocardial infarction - Other termite control service representative (current) drug therapy - Personal history of [...] initial encounter - Hormone replacement therapy - intermediate manager (current) use of aspirin - alf (current) use of insulin - Old myocardial infarction - Other care home (current) drug therapy - Pain in right shoulder - Personal history of nicotine dependence - Presence of coronary angioplasty implant and graft - Type 2 diabetes mellitus without complications 09/12/2023 11:49 [facility] [place] TYPE: Emergency COMPLAINT: - LT SIDE PAIN DIAGNOSES: - Allergy status to other drugs, medicaments and biological substances - Atherosclerotic heart disease of [place] coronary artery without angina pectoris - Essential (primary) hypertension - Hyperlipidemia, unspecified - Hypothyroidism, unspecified - intermediate manager (current) use of insulin - intermediate manager (current) use of oral hypoglycemic drugs - Old myocardial infarction - Other care home (current) drug therapy - Personal history of nicotine dependence - Presence of coronary angioplasty implant and graft - Type 1 diabetes mellitus without complications - Unspecified abdominal pain INPATIENT VISIT TRACKING (12 MO.) 06/30/2024 13:24 [facility] [place] TYPE: Medical Surgical DIAGNOSES: - Acute kidney failure, unspecified - Chest pain, unspecified - Hypercalcemia [id number]
[2024-07-11] MEDS ORDERED: SODIUM CHLORIDE 0.9% 1,000 ML IV ONE (16:30)
[2024-07-11] MEDS ORDERED: HYDROmorphone HCL 1 MG/ML SYR IV ONE (16:30)
[2024-07-11] MEDS ORDERED: DEXAMETHASONE2 MG PO (16:37)
[2024-07-11] MEDS ORDERED: ALPRAZOLAM1 MG (16:38)
[2024-07-11] MEDS ORDERED: OXYCODONE HCL5 MG (16:38)
[2024-07-11 16:54] LABS: BASOPHILS 0.4 % (0-2); EOSINOPHILS 8.6 % (0-6); HEMATOCRIT 30.3 % (35.0-50.0); HEMOGLOBIN 10.3 g/dL (12.0-18.0); LYMPHOCYTES 51.7 % (24-44); MCH 29.3 (27-36); MCHC 33.9 g/dl (30-36); MCV 86.5 fl (81-99); MONOCYTES 15.1 % (0-12); NEUTROPHILS 24.2 % (39-80); PLATELET COUNT 260 K/uL (140-440); RBC 3.51 M/ul (4.3-5.7); RDW 16.4 (10.5-15.0)
[2024-07-11 17:12] LABS: ALBUMIN 2.2 g/dL (3.4-5.0); ALBUMIN/GLOBULIN RATIO 0.42 (1.1-2.4); ANION GAP 14.6 (7-21); BILIRUBIN, TOTAL 0.3 mg/dL (0.2-1.0); BUN/CREATININE RATIO 9.66 (6.0-28.6); CALCIUM 7.7 mg/dL (8.5-10.1); CREATININE, SERUM 2.07 mg/dL (0.70-1.30); POTASSIUM 3.6 mmol/L (3.5-5.1); PROTEIN, TOTAL 7.4 g/dL (6.4-8.2)
[2024-07-11] MEDS ORDERED: DEXTROSE 50% 50 ML SYR IV ONE (18:15)
[2024-07-11 19:17] VITALS: BP 110/60
== END 2024-07-11 19:22 | disposition home or self-care (01) ==
LOC: ED 15:56
PROVIDERS: Emergency Medicine
DX: C90.00 Multiple myeloma not having achieved remission (principal); D61.818 Other pancytopenia; N28.9 Disorder of kidney and ureter, unspecified; E11.9 Type 2 diabetes mellitus without complications; I10 Essential (primary) hypertension; E78.00 Pure hypercholesterolemia, unspecified; I25.2 Old myocardial infarction; Z79.82 Long term (current) use of aspirin; Z79.4 Long term (current) use of insulin; Z79.84 Long term (current) use of oral hypoglycemic drugs; Z79.899 Other long term (current) drug therapy; Z88.8 Allergy status to other drugs, medicaments and biological substances; Z87.891 Personal history of nicotine dependence
CPT/HCPCS: 36415; 74176; 80053; 83690; 85025; 85060; 96361; 96374; 96375; 99284-25; J1171; J7030

== ENCOUNTER 2024-09-28 18:25 | Emergency (ER) | payer MEDICARE, OTHER ==
[~2024-09-28] VITALS: Ht 182.9 cm; Wt 120.4 kg
[~2024-09-28 18:25] MED LIST changes: +ALPRAZOLAM1 MG; +DEXAMETHASONE2 MG PO; +OXYCODONE HCL5 MG
--- OUTSIDE RECORDS SUMMARY | 2024-09-28 18:33 | XMS ---
PreManage Notification: ABBIE BAKER Security Em Physician Events No recent Security Events currently on file CRITERIA MET - [facility] - Visits in 30 Days CARE PROVIDERS AVELINO GUZMAN [facility] 01/11/2019-Current PHONE: Unknown Ying has no Care Guidelines for this patient. Kelly VISIT COUNT (12 MO.) [address] [place] [address] TOTAL 7 NOTE: Visits indicate total known visits. ED/UCC VISIT TRACKING (12 MO.) 09/28/2024 18:26 [facility] [place] TYPE: Emergency COMPLAINT: - LEG SWELLING 09/10/2024 11:30 [facility] [place] TYPE: Emergency COMPLAINT: - LAB DIAGNOSES: - Tinea cruris - LAB - RASH 07/11/2024 15:56 [facility] [place] TYPE: Emergency COMPLAINT: - FLANK PAIN DIAGNOSES: - Allergy status to other drugs, medicaments and biological substances - Disorder of kidney and ureter, unspecified - Essential (primary) hypertension - skilled nursing (current) use of aspirin - skilled nursing (current) use of insulin - termite technician (current) use of oral hypoglycemic drugs - Multiple myeloma not having achieved remission - Old myocardial infarction - Other terminal press operator (current) drug therapy - Other pancytopenia - Personal history of nicotine dependence - Pure hypercholesterolemia, unspecified - Type 2 diabetes mellitus without complications - Unspecified abdominal pain 07/05/2024 01:17 [facility] [place] TYPE: Emergency COMPLAINT: - ABD PAIN DIAGNOSES: - Dehydration - Essential (primary) hypertension - Fall on same level from slipping, tripping and stumbling without subsequent striking against object, initial encounter - Hypomagnesemia - skilled nursing (current) use of aspirin - skilled nursing (current) use of insulin - skilled nursing (current) use of oral hypoglycemic drugs - Neutropenia, unspecified - Old myocardial infarction - Other terminal press operator (current) drug therapy - Personal history of nicotine dependence - Type 2 diabetes mellitus without complications - Unspecified abdominal pain 06/30/2024 13:24 [facility] [place] TYPE: Emergency DIAGNOSES: - Acute kidney failure, unspecified - Chest pain, unspecified - Hypercalcemia - CHEST PAIN 01/07/2024 19:00 [facility] [place] TYPE: Emergency COMPLAINT: - BACK PAIN DIAGNOSES: - Allergy status to other drugs, medicaments and biological substances - Disorder of thyroid, unspecified - History of falling - Hormone replacement therapy - skilled nursing (current) use of aspirin - skilled nursing (current) use of insulin - termite technician (current) use of oral hypoglycemic drugs - Low back pain, unspecified - Old myocardial infarction - Other snf (current) drug therapy - Personal history of nicotine dependence - Presence of aortocoronary bypass graft - Presence of coronary angioplasty implant and graft - Pure hypercholesterolemia, unspecified - Type 1 diabetes mellitus without complications - OTHER INTVRT DISC DEGEN, LUM RGN WITH DISCOG BACK 12/14/2023 11:[address] [facility] [place] TYPE: Emergency COMPLAINT: - FALL DIAGNOSES: [...] initial encounter - Hormone replacement therapy - termite technician (current) use of aspirin - termite technician (current) use of insulin - Old myocardial infarction - Other snf (current) drug therapy - Pain in right shoulder - Personal history of nicotine dependence - Presence of coronary angioplasty implant and graft - Type 2 diabetes mellitus without complications INPATIENT VISIT TRACKING (12 MO.) 06/30/2024 13:24 [facility] [place] TYPE: Medical Surgical DIAGNOSES: - Acute kidney failure, unspecified - Chest pain, unspecified - Hypercalcemia [id number]
[2024-09-28] MEDS ORDERED: FUROSEMIDE20 MG PO (18:48)
[2024-09-28] MEDS ORDERED: ATORVASTATIN CA80 MG PO (18:48)
[2024-09-28 19:43] LABS: MCH 30.2 PG (25.7-32.2); MCHC 32.8 g/dL (32.3-36.5); MCV 91.9 fL (79.0-92.2); RBC 3.71 M/uL (4.63-6.08)
[2024-09-28 20:00] LABS: BANDS, MANUAL DIFF 4; LYMPHOCYTES, MANUAL DIFF 8; MONOCYTES, MANUAL DIFF 8; NEUTROPHILS, MANUAL DIFF 80
[2024-09-28 20:03] LABS: ALT (SGPT) 61.0 U/L (14-59); AST (SGOT) 21.0 U/L (15-37); GLOMERULAR FILTRATION RATE,EST 62.0 mL/min (>60); PROTEIN, TOTAL 5.9 g/dL (6.4-8.2); UREA NITROGEN 44.0 mg/dL (7-18)
[2024-09-28] MEDS ORDERED: FUROSEMIDE 100 MG/10 ML VIAL IV ONE (20:30)
[2024-09-28] MEDS ORDERED: APIXABAN 5 MG TAB PO ONE (21:45)
[2024-09-28] MEDS ORDERED: ELIQUIS5 MG PO (21:47)
[2024-09-28] MEDS ORDERED: LASIX40 MG PO (21:51)
[2024-09-28 22:08] VITALS: BP 154/91
== END 2024-09-28 22:11 | disposition home or self-care (01) ==
LOC: ED 18:25
PROVIDERS: Family Medicine
DX: I82.432 Acute embolism and thrombosis of left popliteal vein (principal); I82.4Z2 Acute embolism and thrombosis of unspecified deep veins of left distal lower extremity; I50.9 Heart failure, unspecified; I10 Essential (primary) hypertension; I25.2 Old myocardial infarction; E11.9 Type 2 diabetes mellitus without complications; Z87.891 Personal history of nicotine dependence; Z88.8 Allergy status to other drugs, medicaments and biological substances; Z79.899 Other long term (current) drug therapy; Z79.84 Long term (current) use of oral hypoglycemic drugs; Z79.4 Long term (current) use of insulin
CPT/HCPCS: 36415; 71045; 80053; 83880; 85025; 85379; 93970; 96374; 99284-25; J1938

== ENCOUNTER 2024-10-03 21:24 | Emergency (ER) | payer MEDICARE, OTHER ==
[~2024-10-03] VITALS: Ht 182.9 cm; Wt 119.7 kg
[~2024-10-03 21:24] MED LIST changes: +ATORVASTATIN CA80 MG PO; +ELIQUIS5 MG PO; +FUROSEMIDE20 MG PO; +LASIX40 MG PO; -TRESIBA FL100 UNIT/1; +TRESIBA FL100 UNIT/1 SUB-Q
--- OUTSIDE RECORDS SUMMARY | 2024-10-03 21:31 | XMS ---
PreManage Notification: ABBIE BAKER Security Supervisor Reclamation Events No recent Security Events currently on file CRITERIA MET - 6 ED Visits in 6 Months - [facility] - 2 Visits in 30 Days CARE PROVIDERS AVELINO GUZMAN Family Medicine 01/11/2019-Current PHONE: Unknown Ying has no Care Guidelines for this patient. Kelly VISIT COUNT (12 MO.) [address] TOTAL 8 NOTE: Visits indicate total known visits. ED/UCC VISIT TRACKING (12 MO.) 10/03/2024 21:25 [facility] [place] TYPE: Emergency COMPLAINT: - NOSE BLEED 09/28/2024 18:26 [facility] [place] TYPE: Emergency COMPLAINT: - LEG SWELLING DIAGNOSES: - Acute embolism and thrombosis of left popliteal vein - Acute embolism and thrombosis of unspecified deep veins of left distal lower extremity - Allergy status to other drugs, medicaments and biological substances - Essential (primary) hypertension - Heart failure, unspecified - manager terminal (current) use of insulin - manager terminal (current) use of oral hypoglycemic drugs - Old myocardial infarction - Other prison (current) drug therapy - Other specified soft tissue disorders - Personal history of nicotine dependence - Type 2 diabetes mellitus without complications 09/10/2024 11:30 [facility] [place] TYPE: Emergency COMPLAINT: - LAB DIAGNOSES: - Tinea cruris - LAB - RASH 07/11/2024 15:56 [facility] [place] TYPE: Emergency COMPLAINT: - FLANK PAIN DIAGNOSES: - Allergy status to other drugs, medicaments and biological substances - Disorder of kidney and ureter, unspecified - Essential (primary) hypertension - manager terminal (current) use of aspirin - manager terminal (current) use of insulin - manager terminal (current) use of oral hypoglycemic drugs - Multiple myeloma not having achieved remission - Old myocardial infarction - Other terminal system operator (current) drug therapy - Other pancytopenia [...] against object, initial encounter - Hypomagnesemia - manager terminal (current) use of aspirin - [facility] (current) use of insulin - [facility] (current) use of oral hypoglycemic drugs - Neutropenia, unspecified - Old myocardial infarction - Other prison (current) drug therapy - Personal history of nicotine dependence - Type 2 diabetes mellitus without complications - Unspecified abdominal pain 06/30/2024 13:24 [facility] [place] TYPE: Emergency DIAGNOSES: - Acute kidney failure, unspecified - Chest pain, unspecified - Hypercalcemia - CHEST PAIN 01/07/2024 19:00 [facility] [place] TYPE: Emergency COMPLAINT: - BACK PAIN DIAGNOSES: - Allergy status to other drugs, medicaments and biological substances - Disorder of thyroid, unspecified - History of falling - Hormone replacement therapy - manager terminal (current) use of aspirin - [facility] (current) use of insulin - [facility] (current) use of oral hypoglycemic drugs - Low back pain, unspecified - Old myocardial infarction - Other prison (current) drug therapy - Personal history of [...] initial encounter - Hormone replacement therapy - [facility] (current) use of aspirin - [facility] (current) use of insulin - Old myocardial infarction - Other terminal system operator (current) drug therapy - Pain in right shoulder - Personal history of nicotine dependence - Presence of coronary angioplasty implant and graft - Type 2 diabetes mellitus without complications INPATIENT VISIT TRACKING (12 MO.) 06/30/2024 13:24 [facility] [place] TYPE: Medical Surgical DIAGNOSES: - Acute kidney failure, unspecified - Chest pain, unspecified - Hypercalcemia [email or web address]
[2024-10-03 22:03] LABS: BASOPHILS 0.8 % (0.2-1.2); EOSINOPHILS 0 % (0.8-7.0); LYMPHOCYTES 3.2 % (21.8-53.1); MCH 30.2 PG (25.7-32.2); MCHC 33.2 g/dL (32.3-36.5); MCV 91.0 fL (79.0-92.2); MONOCYTES 4.5 % (5.3-12.2); NEUTROPHILS 84.6 % (34.0-67.9); RBC 3.77 M/uL (4.63-6.08)
[2024-10-03 22:18] LABS: ALT (SGPT) 56.0 U/L (14-59); AST (SGOT) 16.0 U/L (15-37); GLOMERULAR FILTRATION RATE,EST 36.0 mL/min (>60); PROTEIN, TOTAL 6.3 g/dL (6.4-8.2); UREA NITROGEN 63.0 mg/dL (7-18)
[2024-10-03 22:26] LABS: INR 1.44 (0.80-1.30); PROTIME 16.6 Sec (11.2-14.2)
[2024-10-03] MEDS ORDERED: PHYTONADIONE 2.5 MG/2.5 ML SYR PO ONE (23:00)
[2024-10-03 23:06] LABS: BLOOD/HGB, URINE MODERATE (Negative); KETONE, URINE NEGATIVE (Negative); LEUK ESTERASE, URINE NEGATIVE (negative); NITRITE, URINE NEGATIVE (negative)
[2024-10-03 23:19] LABS: BACTERIA, URINE RARE /hpf (negative); CASTS, URINE HYALINE 1+ \\lpf; CRYSTALS, URINE NONE SEEN (0-1+); EPITHELIAL CELLS, URINE SQUAMOUS 1+ /lpf (0-1+); REFLEX CULTURE, URINE No (No)
[2024-10-03 23:30] VITALS: BP 174/91
[2024-10-03] MEDS ORDERED: OXYMETAZOLINE HCL 30 ML BTL NAS ONE (23:30)
[2024-10-07] MEDS ORDERED: FUROSEMIDE20 MG PO (09:33)
== END 2024-10-03 23:32 | disposition home or self-care (01) ==
LOC: ED 21:24
PROVIDERS: Internal Medicine
DX: R04.0 Epistaxis (principal); D69.59 Other secondary thrombocytopenia; T45.1X5A Adverse effect of antineoplastic and immunosuppressive drugs, initial encounter; R79.1 Abnormal coagulation profile; E11.9 Type 2 diabetes mellitus without complications; I10 Essential (primary) hypertension; Z87.891 Personal history of nicotine dependence; Z88.8 Allergy status to other drugs, medicaments and biological substances; Z79.01 Long term (current) use of anticoagulants; Z79.899 Other long term (current) drug therapy
CPT/HCPCS: 36415; 80053; 81001; 85025; 85610; 85730; 99283

== ENCOUNTER 2024-10-06 12:06 | Inpatient (IN) | payer MEDICARE, OTHER ==
[~2024-10-06] VITALS: Ht 182.9 cm; Wt 117.3 kg
--- OUTSIDE RECORDS SUMMARY | 2024-10-06 12:12 | XMS ---
PreManage Notification: ABBIE BAKER Security Manager Technical Sales Events No recent Security Events currently on file CRITERIA MET - 6 ED Visits in [address] [facility] - 2 Visits in 30 Days CARE PROVIDERS AVELINO GUZMAN Family Medicine 01/11/2019-Current PHONE: Unknown Ying has no Care Guidelines for this patient. Kelly VISIT COUNT (12 MO.) [address] [place] [address] TOTAL 9 NOTE: Visits indicate total known visits. ED/UCC VISIT TRACKING (12 MO.) 10/06/2024 12:06 [facility] [place] TYPE: Emergency COMPLAINT: - WEAKNESS 10/03/2024 21:25 [facility] [place] TYPE: Emergency COMPLAINT: - NOSE BLEED DIAGNOSES: - Abnormal coagulation profile - Adverse effect of antineoplastic and immunosuppressive drugs, initial encounter - Allergy status to other drugs, medicaments and biological substances - Epistaxis - Essential (primary) hypertension - penitentiary (current) use of anticoagulants - Other intermediate project manager (current) drug therapy - Other secondary thrombocytopenia - Personal history of nicotine dependence - Type 2 diabetes mellitus without complications 09/28/2024 18:26 [facility] [place] TYPE: Emergency COMPLAINT: - LEG SWELLING DIAGNOSES: - Acute embolism and thrombosis of left popliteal vein - Acute embolism and thrombosis of unspecified deep veins of left distal lower extremity - Allergy status to other drugs, medicaments and biological substances - Essential (primary) hypertension - Heart failure, unspecified - termite renewal inspector (current) use of insulin - penitentiary (current) use of oral hypoglycemic drugs - Old myocardial infarction - Other detention (current) drug therapy - Other specified soft tissue disorders - Personal history of nicotine dependence - Type 2 diabetes mellitus without complications 09/10/2024 11:30 [facility] [place] TYPE: Emergency COMPLAINT: - LAB DIAGNOSES: - Tinea cruris - LAB - RASH 07/11/2024 15:[address] [facility] [place] TYPE: Emergency COMPLAINT: - FLANK PAIN DIAGNOSES: - Allergy status to other drugs, medicaments and biological substances - Disorder of kidney and ureter, unspecified - Essential (primary) hypertension - penitentiary (current) use of aspirin - termite renewal inspector (current) use of insulin - penitentiary (current) use of oral hypoglycemic drugs - Multiple myeloma not having achieved remission - Old myocardial infarction - Other detention (current) drug therapy - Other pancytopenia - [...] against object, initial encounter - Hypomagnesemia - penitentiary (current) use of aspirin - termite renewal inspector (current) use of insulin - penitentiary (current) use of oral hypoglycemic drugs - Neutropenia, unspecified - Old myocardial infarction - Other intermediate project manager (current) drug therapy - Personal history of nicotine dependence - Type 2 diabetes mellitus without complications - Unspecified abdominal pain 06/30/2024 13:24 [facility] [place] TYPE: Emergency DIAGNOSES: - Acute kidney failure, unspecified - Chest pain, unspecified - Hypercalcemia - CHEST PAIN 01/07/2024 19:00 [facility] [place] TYPE: Emergency COMPLAINT: - BACK PAIN DIAGNOSES: - Allergy status to other drugs, medicaments and biological substances - Disorder of thyroid, unspecified - History of falling - Hormone replacement therapy - penitentiary (current) use of aspirin - termite renewal inspector (current) use of insulin - penitentiary (current) use of oral hypoglycemic drugs - Low back pain, unspecified - Old myocardial infarction - Other intermediate project manager (current) drug therapy - Personal history of [...] initial encounter - Hormone replacement therapy - penitentiary (current) use of aspirin - termite renewal inspector (current) use of insulin - Old myocardial infarction - Other detention (current) drug therapy - Pain in right shoulder - Personal history of nicotine dependence - Presence of coronary angioplasty implant and graft - Type 2 diabetes mellitus without complications INPATIENT VISIT TRACKING (12 MO.) 06/30/2024 13:24 [facility] [place] TYPE: Medical Surgical DIAGNOSES: - Acute kidney failure, unspecified - Chest pain, unspecified - Hypercalcemia [email or web address]
[2024-10-06 12:25] LABS: BASOPHILS 0.5 % (0.2-1.2); EOSINOPHILS 0.1 % (0.8-7.0); LYMPHOCYTES 2.7 % (21.8-53.1); MCH 30.2 PG (25.7-32.2); MCHC 33.1 g/dL (32.3-36.5); MCV 91.2 fL (79.0-92.2); MONOCYTES 4.0 % (5.3-12.2); NEUTROPHILS 85.0 % (34.0-67.9); RBC 3.77 M/uL (4.63-6.08)
[2024-10-06 12:42] LABS: BANDS, MANUAL DIFF 3; LYMPHOCYTES, MANUAL DIFF 4; MONOCYTES, MANUAL DIFF 5; NEUTROPHILS, MANUAL DIFF 88
[2024-10-06 12:49] LABS: ALT (SGPT) 52.0 U/L (14-59); AST (SGOT) 18.0 U/L (15-37); GLOMERULAR FILTRATION RATE,EST 50.0 mL/min (>60); PROTEIN, TOTAL 6.3 g/dL (6.4-8.2); UREA NITROGEN 58.0 mg/dL (7-18)
[2024-10-06] MEDS ORDERED: MORPHINE SULFATE 4 MG/ML VIAL IV ONE ×2 (14:15→16:00)
[2024-10-06] MEDS ORDERED: DEXAMETHASONE SOD PHOS 10 MG/ML VIAL IV ONE (18:00)
[2024-10-06] MEDS ORDERED: GLUCAGON,HUMAN RECOMBINANT 1 MG/ML VIAL SUB-Q PRN (18:15)
[2024-10-06] MEDS ORDERED: DEXTROSE 5% 1,000 ML IV PRN (18:15)
[2024-10-06] MEDS ORDERED: ACETAMINOPHEN 325 MG TAB PO PRN (18:15)
[2024-10-06] MEDS ORDERED: DEXTROSE 50% 50 ML SYR IV PRN ×2 (18:15)
[2024-10-06] MEDS ORDERED: IBLOOD GLUCOSE TEST STRIP 1 EA TEST XX PRN (18:15)
[2024-10-06] MEDS ORDERED: MORPHINE SULFATE 4 MG/ML VIAL IV PRN (18:30)
[2024-10-06 18:54] VITALS: BP 165/81
[2024-10-06] MEDS ORDERED: IBLOOD GLUCOSE TEST STRIP 1 EA TEST VI SCH (21:00)
[2024-10-06] MEDS ORDERED: ATORVASTATIN 40 MG TAB PO SCH (21:00)
[2024-10-06] MEDS ORDERED: INSULIN LISPRO 100 UNIT/ML ML SUB-Q SCH (21:00)
[2024-10-06] MEDS ORDERED: INSULIN GLARGINE-YFGN 100 UNIT/ML ML SUB-Q SCH (21:00)
[2024-10-06] MEDS ORDERED: APIXABAN 5 MG TAB PO SCH (21:00)
[2024-10-06 21:15] VITALS: BP 149/85
[2024-10-06 21:31] VITALS: BP 149/85
--- NOTE | 2024-10-06 21:49 | EKG ---
[facility] [address] [place] [address] Signed Normal sinus rhythm Moderate voltage criteria for LVH, may be normal variant ( R in aVL , [place] product ) Inferior infarct (cited on or before 03-FEB-2021) Abnormal ECG When compared with ECG of 03-FEB-2021 14:04, T wave inversion now evident in Inferior leads Confirmed by Nishant Diaz MD () on 10/06/2024 9:49:30 PM Electronically Signed By: NISHANT DIAZ MD 10/06/24 2149 PATIENT NAME: ABBIE BAKER Electrocardiogram DATE OF : 59 PHYSICIAN: NISHANT DIAZ MD REPORT #: [id number] REPORT IS CONFIDENTIAL AND NOT TO BE RELEASED WITHOUT AUTHORIZATION
[2024-10-06] MEDS ORDERED: MAGNESIUM SULFATE 2 GM/50 ML BAG IV ONE (23:15)
[2024-10-07] VITALS (11 sets, daily range): BP systolic 146–170; BP diastolic 78–91
[2024-10-07 05:28] LABS: MCH 29.9 PG (25.7-32.2); MCHC 32.8 g/dL (32.3-36.5); MCV 91.0 fL (79.0-92.2); RBC 4.12 M/uL (4.63-6.08)
[2024-10-07 05:43] LABS: ALT (SGPT) 52.0 U/L (14-59); AST (SGOT) 20.0 U/L (15-37); GLOMERULAR FILTRATION RATE,EST 39.0 mL/min (>60); PHOSPHORUS, INORGANIC 5.0 mg/dL (2.5-4.9); PROTEIN, TOTAL 6.9 g/dL (6.4-8.2); UREA NITROGEN 60.0 mg/dL (7-18)
[2024-10-07 05:45] LABS: BANDS, MANUAL DIFF 3; LYMPHOCYTES, MANUAL DIFF 6; MONOCYTES, MANUAL DIFF 3; NEUTROPHILS, MANUAL DIFF 88
[2024-10-07] MEDS ORDERED: LEVOTHYROXINE100 MCG PO (08:15)
[2024-10-07] MEDS ORDERED: METFORMIN HCL500 M1 PO (08:15)
[2024-10-07] MEDS ORDERED: INSULIN AS100 UNIT/3 SUB-Q (08:18)
[2024-10-07] MEDS ORDERED: FUROSEMIDE 40 MG TAB PO SCH (09:00)
[2024-10-07] MEDS ORDERED: APIXABAN 5 MG TAB PO SCH (09:00)
[2024-10-07] MEDS ORDERED: LEVOTHYROXINE SODIUM 88 MCG TAB PO SCH (09:00)
[2024-10-07] MEDS ORDERED: PANTOPRAZOLE SODIUM 40 MG TABEC PO SCH (09:00)
[2024-10-07] MEDS ORDERED: NYSTATIN15 G2 TOP (09:29)
[2024-10-07] MEDS ORDERED: OXYCODONE HCL5 M1 PO (09:30)
[2024-10-07] MEDS ORDERED: ADVIL200 MG PO (09:31)
[2024-10-07] MEDS ORDERED: ACYCLOVIR400 MG PO (09:31)
[2024-10-07] MEDS ORDERED: LIDOCAINE HCL 4% 1 EACH PATCH TD SCH (10:59)
[2024-10-07] MEDS ORDERED: HYDROmorphone HCL 1 MG/ML SYR IV PRN (11:00)
[2024-10-07] MEDS ORDERED: PHARMACY RENAL DOSE ADJUSTMENT 1 DOSE MISC PO SCH (12:00)
[2024-10-07] MEDS ORDERED: LIDOCAINE PATCH REMOVAL 1 EA TD SCH (21:00)
[2024-10-08] VITALS (9 sets, daily range): BP systolic 152–179; BP diastolic 76–99
[2024-10-08 05:13] LABS: BASOPHILS 0.1 % (0.2-1.2); EOSINOPHILS 0 % (0.8-7.0); LYMPHOCYTES 0.9 % (21.8-53.1); MCH 30.1 PG (25.7-32.2); MCHC 32.6 g/dL (32.3-36.5); MCV 92.2 fL (79.0-92.2); MONOCYTES 2.5 % (5.3-12.2); NEUTROPHILS 95.1 % (34.0-67.9); RBC 3.86 M/uL (4.63-6.08)
[2024-10-08 05:32] LABS: ALT (SGPT) 43.0 U/L (14-59); AST (SGOT) 19.0 U/L (15-37); GLOMERULAR FILTRATION RATE,EST 42.0 mL/min (>60); PROTEIN, TOTAL 6.7 g/dL (6.4-8.2); UREA NITROGEN 63.0 mg/dL (7-18)
[2024-10-08] MEDS ORDERED: CYCLOBENZAPRINE HCL 10 MG TAB PO SCH (10:10)
[2024-10-08] MEDS ORDERED: GABAPENTIN 300 MG CAP PO SCH (10:10)
[2024-10-09] VITALS (8 sets, daily range): BP systolic 150–177; BP diastolic 74–94
[2024-10-09] MEDS ORDERED: METOPROLOL TARTRATE 100 MG TAB PO SCH (09:00)
[2024-10-09] MEDS ORDERED: FENTANYL 12 MCG/HR 1 EA TDSY TD SCH (09:30)
[2024-10-09] MEDS ORDERED: INSULIN GLARGINE-YFGN 100 UNIT/ML ML SUB-Q SCH (21:00)
[2024-10-10] VITALS (8 sets, daily range): BP systolic 144–157; BP diastolic 79–105
[2024-10-10 05:49] LABS: ALT (SGPT) 39.0 U/L (14-59); AST (SGOT) 23.0 U/L (15-37); GLOMERULAR FILTRATION RATE,EST 54.0 mL/min (>60); PROTEIN, TOTAL 7.0 g/dL (6.4-8.2); UREA NITROGEN 64.0 mg/dL (7-18)
[2024-10-10] MEDS ORDERED: DICLOFENAC 1% TOPICAL GEL TOP PRN (10:45)
[2024-10-11] VITALS (9 sets, daily range): BP systolic 113–147; BP diastolic 59–106
[2024-10-11 05:32] LABS: ALT (SGPT) 41.0 U/L (14-59); AST (SGOT) 27.0 U/L (15-37); GLOMERULAR FILTRATION RATE,EST 44.0 mL/min (>60); PROTEIN, TOTAL 6.9 g/dL (6.4-8.2); UREA NITROGEN 67.0 mg/dL (7-18)
[2024-10-11] MEDS ORDERED: LORazepam 2 MG/ML VIAL IV PRN (07:45)
[2024-10-11] MEDS ORDERED: LACTATED RINGER'S 1,000 ML IV SCH (08:00)
[2024-10-11] MEDS ORDERED: NALOXONE HCL 2 MG/2 ML SYR NAS PRN (08:00)
[2024-10-11 15:53] LABS: SODIUM, RANDOM URINE 32.0 mmol/L (NOT ESTABLISHED)
[2024-10-11 15:56] LABS: BLOOD/HGB, URINE LARGE (Negative); KETONE, URINE NEGATIVE (Negative); LEUK ESTERASE, URINE NEGATIVE (negative); NITRITE, URINE NEGATIVE (negative)
[2024-10-11 16:05] LABS: BACTERIA, URINE RARE /hpf (negative); CASTS, URINE GRANULAR 1+ \\lpf; CRYSTALS, URINE NONE SEEN (0-1+); EPITHELIAL CELLS, URINE 0 /lpf (0-1+); REFLEX CULTURE, URINE No (No)
[2024-10-11 20:32] LABS: GLOMERULAR FILTRATION RATE,EST 32.0 mL/min (>60); UREA NITROGEN 82.0 mg/dL (7-18)
[2024-10-11] MEDS ORDERED: MICONAZOLE NITRATE 1 EA BTL TOP SCH (21:00)
[2024-10-11] MEDS ORDERED: INSULIN GLARGINE-YFGN 100 UNIT/ML ML SUB-Q SCH (21:00)
[2024-10-11] MEDS ORDERED: FUROSEMIDE 40 MG/4 ML VIAL IV ONE (22:15)
[2024-10-11 22:16] LABS: MCH 29.8 PG (25.7-32.2); MCHC 32.6 g/dL (32.3-36.5); MCV 91.3 fL (79.0-92.2); RBC 4.23 M/uL (4.63-6.08)
[2024-10-11 22:29] LABS: BANDS, MANUAL DIFF 2; LYMPHOCYTES, MANUAL DIFF 1; NEUTROPHILS, MANUAL DIFF 97
[2024-10-12] MEDS ORDERED: PIPERACILLIN/TAZOBACTAM 4.5 GM in SODIUM CHLORIDE 0.9% 100 ML IV ONE (00:45)
[2024-10-12 01:32] VITALS: BP 133/82
[2024-10-12 03:11] VITALS: BP 117/74
[2024-10-12 03:34] LABS: BASOPHILS 0.5 % (0.2-1.2); EOSINOPHILS 0 % (0.8-7.0); LYMPHOCYTES 1.8 % (21.8-53.1); MCH 29.8 PG (25.7-32.2); MCHC 33.2 g/dL (32.3-36.5); MCV 89.9 fL (79.0-92.2); MONOCYTES 1.8 % (5.3-12.2); NEUTROPHILS 95.1 % (34.0-67.9); RBC 4.16 M/uL (4.63-6.08)
[2024-10-12 03:52] VITALS: BP 135/79
[2024-10-12 03:53] LABS: ALT (SGPT) 41.0 U/L (14-59); AST (SGOT) 35.0 U/L (15-37); GLOMERULAR FILTRATION RATE,EST 26.0 mL/min (>60); PROTEIN, TOTAL 6.5 g/dL (6.4-8.2); UREA NITROGEN 86.0 mg/dL (7-18)
[2024-10-12 03:59] LABS: TSH, 3RD GENERATION 0.134 uIU/mL (0.358-3.740)
[2024-10-12 04:00] VITALS: BP 122/68
[2024-10-12] MEDS ORDERED: FUROSEMIDE 40 MG/4 ML VIAL IV ONE (04:15)
[2024-10-12] MEDS ORDERED: NITROGLYCERIN 0.4 MG SUBL ONE (04:18)
[2024-10-12] MEDS ORDERED: TICAGRELOR 90 MG TAB ONE (04:18)
[2024-10-12] MEDS ORDERED: CLOPIDOGREL BISULFATE 75 MG TAB ONE (04:18)
[2024-10-12] MEDS ORDERED: ASPIRIN 81 MG CHEW ONE (04:18)
[2024-10-12] MEDS ORDERED: HEPARIN SOD,PORK IN 0.45% NACL 500 ML IV ONE (04:19)
[2024-10-12 04:30] VITALS: BP 110/75
[2024-10-12 04:58] VITALS: BP 98/82
[2024-10-12] MEDS ORDERED: HEPARIN SOD,PORK IN 0.45% NACL 500 ML IV SCH (05:00)
[2024-10-12] MEDS ORDERED: ETOMIDATE 40 MG/20 ML VIAL IV ONE (05:45)
[2024-10-12] MEDS ORDERED: PIPERACILLIN/TAZOBACTAM 4.5 GM in SODIUM CHLORIDE 0.9% 100 ML IV SCH (06:00)
[2024-10-12] MEDS ORDERED: VANCOMYCIN HCL 3,000 MG in DEXTROSE 5% 500 ML IV ONE (06:00)
[2024-10-12] MEDS ORDERED: VANCOMYCIN PER PHARMACY PROTOCOL IV SCH (09:00)
--- NOTE | 2024-10-12 10:55 | EKG ---
[facility] [address] [facility] [place] [address] Signed Sinus tachycardia with premature atrial complexes Left axis deviation Inferior infarct , age undetermined Abnormal ECG Confirmed by Korey Squires DO ([id number]) on 10/12/2024 10:55:23 AM Electronically Signed By: KOREY SQUIRES DO 10/12/24 1055 PATIENT NAME: ABBIE BAKERONY Electrocardiogram DATE OF : 59 PHYSICIAN: KOREY SQUIRES DO REPORT #: [id number] REPORT IS CONFIDENTIAL AND NOT TO BE RELEASED WITHOUT AUTHORIZATION
--- NOTE | 2024-10-12 10:56 | EKG ---
[facility] [address] [place] [address] Signed Sinus tachycardia with premature atrial complexes Inferior infarct (cited on or before 03-FEB-2021) ACUTE FL / STEMI Consider right ventricular involvement in acute inferior infarct Abnormal ECG When compared with ECG of 12-OCT-2024 04:06, (Unconfirmed) No significant change was found Confirmed by Krunal Squires DO ([id number]) on 10/12/2024 10:56:25 AM Electronically Signed By: KRUNAL SQUIRES DO 10/12/24 1056 PATIENT NAME: ABBEI BAKER Electrocardiogram DATE OF : 59 PHYSICIAN: KRUNAL SQUIRES DO REPORT #: [id number] REPORT IS CONFIDENTIAL AND NOT TO BE RELEASED WITHOUT AUTHORIZATION
== END 2024-10-12 05:20 | disposition short-term general hospital (02) | DRG 542 ==
LOC: ED 12:06 → MS 12:07 → CCU 10-07 10:59 → MS 10-07 11:00 → CCU 10-12 03:06
PROVIDERS: Emergency Medicine; Student in an Organized Health Care Education/Training Program; ADMIT Family Medicine; ATTEND Family Medicine
PROC: 5A0935A Assistance with Respiratory Ventilation, Less than 24 Consecutive Hours, High Flow/Velocity Cannula (ICD-10-PCS; principal; 2024-10-12)
PROC: 02H633Z Insertion of Infusion Device into Right Atrium, Percutaneous Approach (ICD-10-PCS; 2024-10-12)
PROC: B548ZZA Ultrasonography of Superior Vena Cava, Guidance (ICD-10-PCS; 2024-10-12)
PROC: 3E03329 Introduction of Other Anti-infective into Peripheral Vein, Percutaneous Approach (ICD-10-PCS; 2024-10-12)
DX: M84.351A Stress fracture, right femur, initial encounter for fracture (principal); I21.4 Non-ST elevation (NSTEMI) myocardial infarction; J18.9 Pneumonia, unspecified organism; J96.01 Acute respiratory failure with hypoxia; C90.00 Multiple myeloma not having achieved remission; I82.432 Acute embolism and thrombosis of left popliteal vein; N17.9 Acute kidney failure, unspecified; I25.10 Atherosclerotic heart disease of native coronary artery without angina pectoris; M19.90 Unspecified osteoarthritis, unspecified site; E78.00 Pure hypercholesterolemia, unspecified; I10 Essential (primary) hypertension; M51.369 Other intervertebral disc degeneration, lumbar region without mention of lumbar back pain or lower extremity pain; E11.65 Type 2 diabetes mellitus with hyperglycemia; E03.9 Hypothyroidism, unspecified; I25.2 Old myocardial infarction; Z87.891 Personal history of nicotine dependence; Z95.5 Presence of coronary angioplasty implant and graft; Z98.890 Other specified postprocedural states; Z88.8 Allergy status to other drugs, medicaments and biological substances; Z79.01 Long term (current) use of anticoagulants; Z79.899 Other long term (current) drug therapy; Z79.891 Long term (current) use of opiate analgesic; Z79.4 Long term (current) use of insulin; Z79.890 Hormone replacement therapy; Z79.82 Long term (current) use of aspirin; Z79.84 Long term (current) use of oral hypoglycemic drugs; Z79.85 Long-term (current) use of injectable non-insulin antidiabetic drugs
CPT/HCPCS: 36415; 36556; 36592; 51798; 70450; 71045; 71260; 72148; 73120; 73502; 73700; 73718; 80048; 80053; 81001; 82140; 82570; 82803; 83735; 83880; 84100; 84300; 84443; 84484; 85007; 85025; 93005; 93010; 93971; 94762; 97110; 97163; 97167; 97530; A9270; G0378; J1100; J1171; J1644; J1815; J1938; J2060; J2270; J2405; J2543; J3475; J7121; J8540; Q9967; U0002